=== PATIENT | male | born 1985 | race African-American/Black ===

== ENCOUNTER 2023-05-07 15:00 | Outpatient (CLI) | payer OTHER ==
--- NOTE | 2023-05-07 17:53 | XRAY Report ---
PROCEDURE: Chest 2 View X-Ray INDICATIONS: COUGH TECHNIQUE: 2 views of the chest were acquired. COMPARISON: None. FINDINGS: Surgical changes and devices: None. Lungs and pleura: No pleural effusions or pneumothorax. Lungs are clear. Mediastinum: Mediastinal contours appear normal. Heart size is normal. Bones and chest wall: No suspicious bony lesions. Overlying soft tissues appear unremarkable. IMPRESSION: No acute cardiopulmonary process. Reviewed by: Kunal Hernández MD on 05/07/2023 4:51 PM AKDT Approved by: Kunal Hernández MD on 05/07/2023 4:51 PM AKDT Station ID: [id number]
== END 2023-05-07 15:01 | disposition home or self-care (01) ==
LOC: DI 15:00
PROVIDERS: ATTEND Student in an Organized Health Care Education/Training Program
DX: R05.9 Cough, unspecified (principal)